=== PATIENT | male | born 1960 | race Caucasian/White ===

== ENCOUNTER 2020-03-16 09:00 | Inpatient (IN) ==
[2020-03-16] MEDS ORDERED: LACTULOSE 20 GM/30 ML ORAL.SOL PO PRN ×3 (12:53→14:56)
[2020-03-16] MEDS ORDERED: SENNOSIDES 1 TABLET PO PRN ×3 (12:53→14:56)
[2020-03-16] MEDS ORDERED: ONDANSETRON 4 MG/2 ML VIAL IV PRN ×4 (12:53→14:56)
[2020-03-16] MEDS ORDERED: THIAMINE 100 MG in 0.9 % SODIUM CHLORIDE 50 ML IV SCH (13:30)
[2020-03-16] MEDS ORDERED: 0.9 % SODIUM CHLORIDE 10 ML SYRINGE IV SCH ×4 (14:00→22:00)
[2020-03-16] MEDS ORDERED: DIAZEPAM 10 MG TABLET PO PRN (14:15)
--- NOTE | 2020-03-16 14:28 | Internal Med History&Physical ---
HPI History of Present Illness Patient information: Note initiated : 03/16/20 at 2:24 pm Service Date, if different from initiated Date: [] Patient: Niharika Domingo a 59 y/o M admitted on 03/16/20 for detox. Chief Complaint: [alcohol withdrawal] History of present illness: Mr. Domingo is a 59 year old M with a history of alcohol use disorder admitted for alcohol withdrawal. Constitutional Constitutional: Present as per HPI Cardiovascular Cardiovascular: Absent chest pain Respiratory Respiratory: Absent dyspnea Gastrointestinal Gastrointestinal: Absent abdominal pain Integumentary Integumentary: Absent skin ulcer Psychiatric Psychiatric: Present depression; Absent suicidal ideation PFSH PFSH All Active Problems (Updated 03/16/20 @ 12:32 by Andriy Brownlee DO) Chest pain, non-cardiac (Acute) Alcoholism, chronic (Acute) Alcohol withdrawal seizure (Acute) Cannabis use disorder, moderate, dependence (Acute) Generalized anxiety disorder (Acute) Alcohol related seizure (Acute) Alcohol use disorder, severe, dependence (Acute) Pain in right knee (Chronic) Left ventricular diastolic dysfunction (Chronic) Essential hypertension (Chronic) Hearing loss (Chronic) Cataract (Chronic) Mixed anxiety and depressive disorder (Chronic) Bipolar disorder (Chronic) Overweight (Chronic) Hyperlipidemia (Chronic) Alcohol abuse (Chronic) CVA (cerebral vascular accident) (Acute) Medical History (Updated 03/16/20 @ 12:32 by Andriy Brownlee DO) Alcohol abuse (Chronic) Alcoholic intoxication (Resolved) Bipolar disorder (Chronic) Cataract (Chronic) Contusion of knee (Resolved) CVA (cerebral vascular accident) (Acute) Diverticular disease (Inactive) Essential hypertension (Chronic) Hearing loss (Chronic) Hyperlipidemia (Chronic) Left ventricular diastolic dysfunction (Chronic) Lipoma (Inactive) Malaise (Inactive) Mixed anxiety and depressive disorder (Chronic) Numbness (Inactive) Overweight (Chronic) Pain in right knee (Chronic) Surgical History (Updated 03/16/20 @ 12:28 by Andriy Brownlee DO) History of right knee surgery (Inactive) History of surgery on wrist (Inactive) ORIF, due to fracture Family History (Updated 03/16/20 @ 12:26 by Andriy Brownlee DO) Other No pertinent family history Social History lives independently: Yes sexually active: Yes smoking status: Never smoker alcohol intake frequency: 2+ drinks per day substance use type: marijuana working smoke detector in home: Yes firearms in home: No MEDS/ALLERGIES Home Medications and Allergies Home Medications Medication Instructions Recorded Confirmed Type No Known Home Meds 03/16/20 03/16/20 History Allergies Allergy/AdvReac Type Severity Reaction Status Date / Time No Known Drug Allergies Allergy Verified 03/16/20 09:32 EXAM Constitutional Vitals: Resp Pulse Ox 19 96 03/16/20 12:42 03/16/20 12:42 Head Head exam: Present atraumatic and normal inspection Eye Eye exam: Present normal appearance; Absent scleral icterus Neck Neck exam: Present full ROM; Absent lymphadenopathy Respiratory Respiratory exam: Present normal respiratory exam; Absent accessory muscle use Cardiovascular Cardiovascular exam: Present normal rate and rhythm Extremities Exam Extremities exam: Present full ROM and normal inspection Neurological Exam Neurological exam: Present alert, CN II-XII intact and oriented X3 Psychiatric Psychiatric exam: Present anxious; Absent agitated Skin Skin exam: Present normal color and warm DATA Data Completed and Pending Labs: Labs from last 24 hours 03/16/20 13:12 Sodium Pending Potassium Pending Chloride Pending Carbon Dioxide Pending Anion Gap Pending BUN Pending Creatinine Pending GFR Calculation Pending Glucose Pending Uric Acid Pending Calcium Pending Phosphorus Pending Magnesium Pending Total Bilirubin Pending Direct Bilirubin Pending GGT Pending AST Pending ALT Pending Alkaline Phosphatase Pending Lactate Dehydrogenase Pending Total Protein Pending Albumin Pending Globulin Pending Albumin/Globulin Ratio Pending Triglycerides Pending A/P Narrative A/P Narrative: ASSESSMENT: 59 year old male with a history of alcohol use disorder, severe alcohol withdrawal including alcohol withdrawal seizures, admitted for alcohol withdrawal. #Alcohol use disorder #Alcohol withdrawal #Hx of depression PLAN -CIWA protocol w/ benzodiazepine scheduled per specialist. -Vitamin supplementation -Follow and replace electrolytes as needed. -Seizure precautions. -UDS ordered. -Escalate cares if needed. -Follow up with behavioral health after alcohol withdrawal. Time Spent With Patient Time: Total time spent is greater than 50% in coordination of care (as documented) at patient's floor/unit and/or counseling patient: 56 QUALITY Stroke Symptom Onset Unknown: No VTE Deep Vein Thrombosis/Pulmonary Embolism Present on Admission: No
[2020-03-16] MEDS: DIAZEPAM 10 MG TABLET PO PRN ×5 (15:35→22:14)
[2020-03-16 15:41] LABS: ALT/SGPT 29 U/L (<40); AST/SGOT 21 U/L (<40); Albumin/Globulin Ratio 1.3 (1.0-2.3); Alkaline Phosphatase 64 U/L (39-117); Bilirubin,Direct < 0.2 mg/dL (<0.3); Bilirubin,Total 0.2 mg/dL (0.1-1.0); Blood Urea Nitrogen 14 mg/dL (6-20); Calcium 9.1 mg/dL (8.6-10.4); Carbon Dioxide 21 mmol/L (22-30); Chloride 103 mmol/L (96-108); Globulin 3.2 gm/dL (2.2-3.7); Glomerular Filtration Rate 93; Glucose 90 mg/dL (70-105); Lactate Dehydrogenase 189 U/L (135-225); Phosphorous 2.9 mg/dL (2.5-4.5); Triglycerides 184 mg/dL (<150); Uric Acid 8.4 mg/dL (2.5-8.0)
--- NOTE | 2020-03-16 15:54 | Behavioral Health Consult ---
HPI History of Present Illness Patient information: Note initiated : 03/16/20 at 3:42 pm Service Date, if different from initiated Date: [] Patient: Niharika Domingo a 59 y/o M admitted on 03/16/20 for detox. Chief Complaint: alcohol withdrawal History of present illness: Mr. Domingo is a 59 year old M states that he has been drinking alcohol for the past 40 years. Patient is a poor historian and is unable to provide me specific progression of the use of alcohol over the years. He does recall feeling instant euphoria when he first started use of alcohol and states that he was always trying to drink as much as he could afford or what has been available to him. Patient states that in the last year, he has been drinking 24 (16oz) beers a day. Patient states that his last drink was an hour ago. Patient's breathalyzer is 0.9. Urine drug test is positive for Etg, benzodiazepines and cannabis. Patient states that he wakes up at 6 in the morning to drink alcohol in order to avoid withdrawal symptoms. Patient states that he started having several seizures in the last year and states that the last seizure was a few weeks ago. Patient states that he is unable to cut down his use of alcohol even though his primary care provider has prescribed him chlordiazepoxide in the past. Patient states that if he attempts to cut down his drinking, he starts experiencing tremors as well as seizure activity. Patient states that occasionally he exp eriences urinary incontinence when he has a seizure. Patient admits to use of alcohol on top of his use of chlordiazepoxide. Patient states that he has not been taking the medication as prescribed and has been "hoarding it" because he has not been given enough pills in his opinion. Patient states that he has a good relationship with his but she is worried for his health and he is convinced also that his alcoholism is going to kill him unless he stops drinking. Patient states that he has no energy or motivation to do anything. 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 Patient does admit to history of a DUI 13 years ago but denies any recent legal problems. Patient states that his has to drive him everywhere because he is constantly inebriated. Patient admits to prior history of sobriety for 2 years but is unable to give me any specific details as to where he received treatment. He states that he relapsed because he thought that he was able to drink a beer, but once he started drinking he was unable to control himself. Patient feels that 2 years ago, he had surgery on his left hand and was prescribed opioids. He feels that somehow the medication has contributed and increased his cravings for alcohol use but he denies any history of abuse of the opioid medications. He denies any current use of opioids. He has negative Board of pharmacy. Patient denies use of methamphetamines, cocaine. Patient denies any use of benzodiazepines other than what has recently been prescribed to him by his primary care provider. Patient does admit to use of cannabis on a daily basis unspecified amount for the last 40 years. Patient denies any history of medication assisted treatment. Patient denies treatment in [facility] or and does not currently have a sponsor. Patient denies history of hepatitis, pancreatitis or delirium tremens. Patient admits to chipping his teeth as a result of seizures Patient admits to CVA in 2016. Patient is recognizing that his use of alcohol is impacting his overall health and is requesting inpatient treatment to safely discontinue use of alcohol. Patient denies any past history of inpatient mental health treatment. Patient denies any history of outpatient mental health evaluation or treatment. Patient denies any past or present suicidal homicidal ideation. Patient states that he has been for 15 years and does not have any children. Patient denies any family history of alcohol or substance use disorder. Constitutional Constitutional: Present fatigue and weakness; Absent anorexia, chills, daytime sleepiness, excessive sweating, fever(s), frequent falls, headache(s), increased appetite, lethargy, malaise, night sweats, snoring, stops breathing during sleep, weight gain and weight loss EENT Eyes: Absent blind spots, blurry vision, change in vision, decreased night vision, diplopia, discharge, dry eye, exophthalmos, floaters, irritation, itchy eyes, loss of peripheral vision, loss of vision, pain, photophobia, requires corrective lenses, seeing flashes, spots in vision and tunnel vision Ears: Absent decreased hearing, ear discharge, ear pain and tinnitus Nose, mouth and throat: Present dizziness; Absent change in voice, dental pain, dry mouth, dysphagia, epistaxis, headache(s), mouth lesions, mouth pain, nasal discharge, nasal obstruction, nasal trauma, neck mass, neck pain, nose pain, sinus pain, sinus pressure, sore throat, throat swelling and vertigo Cardiovascular Cardiovascular: Present chest pain at rest and lightheadedness; Absent chest pain, diaphoresis, dyspnea, dyspnea on exertion, edema, irregular heart rhythm, radiating jaw, neck or arm pain, leg edema, palpatations, paroxysmal nocturnal dyspnea, pedal edema, radiating pain, rapid heart rate, slow heart rate and sync ope Respiratory Respiratory: Absent cough, dyspnea, hemoptysis, dyspnea on exertion, wheezing, stridor, pain on inspirtation, chest congestion, excessive phlegm production and pain with cough Gastrointestinal Gastrointestinal: Present abdominal pain (epigastric); Absent bloating, coffee ground emesis, constipation, diarrhea, dyspepsia, early satiety, excessive flatus and odynophagia Musculoskeletal Musculoskeletal: Absent abnormal gait, back pain, joint swelling, limited range of motion, muscle cramps, muscle weakness, myalgias, neck pain, numbness, r adiating pain into limb, stiffness and tingling Integumentary Integumentary: Absent bleeding lesions, change in hair, change in pigmentation, dry skin, hirsutism, lesions, new lesions, photosensitivity, pruritus, rash, skin pain, skin ulcer, swelling and unusual bruising Neurological Neurological: Present tremor(s); Absent abnormal gait, abnormal hearing, abnormal movements, abnormal speech, burning sensations, confusion, convulsions, dizziness, frequent falls, headache(s), lack of coordination, loss of vision, memory loss, numbness, paresthesias, restless legs, sensory deficit, syncope, tingling and vertigo Psychiatric Psychiatric: Present anxiety, cravings, depression, hopelessness, irritability, mood swings and panic attacks; Absent auditory hallucinations, confusion, hallucinations, memory loss, paranoia, suicidal ideation and visual hallucinations Endocrine Endocrine: Present fatigue; Absent excessive sweating, flushing, heat intolerance, palpitations, polydipsia and polyuria Hematologic/Lymphatic Hematologic/Lymphatic: Absent easy bleeding, easy bruising and lymphadenopathy Allergic/Immunologic Allergic/Immunologic: Absent tongue swelling, throat swelling, itchy eyes, uticaria, wheezing and lip swelling PFSH PFSH All Active Problems (Updated 03/16/20 @ 15:49 by Abi Trejo DO) Alcohol use disorder, severe, dependence (Acute) Chest pain, non-cardiac (Acute) Alcoholism, chronic (Acute) Alcohol withdrawal seizure (Acute) Cannabis use disorder, moderate, dependence (Acute) Generalized anxiety disorder (Acute) Alcohol related seizure (Acute) Alcohol use disorder, severe, dependence (Acute) Pain in right knee (Chronic) Left ventricular diastolic dysfunction (Chronic) Essential hypertension (Chronic) Hearing loss (Chronic) Cataract (Chronic) Mixed anxiety and depressive disorder (Chronic) Bipolar disorder (Chronic) Overweight (Chronic) Hyperlipidemia (Chronic) Alcohol abuse (Chronic) CVA (cerebral vascular accident) (Acute) Medical History (Updated 03/16/20 @ 15:49 by Abi Trejo DO) Alcohol abuse (Chronic) Alcoholic intoxication (Resolved) Bipolar disorder (Chronic) Cataract (Chronic) Contusion of knee (Resolved) CVA (cerebral vascular accident) (Acute) Diverticular disease (Inactive) Essential hypertension (Chronic) Hearing loss (Chronic) Hyperlipidemia (Chronic) Left ventricular diastolic dysfunction (Chronic) Lipoma (Inactive) Malaise (Inactive) Mixed anxiety and depressive disorder (Chronic) Numbness (Inactive) Overweight (Chronic) Pain in right knee (Chronic) Surgical History (Updated 03/16/20 @ 12:28 by Andriy Brownlee DO) History of right knee surgery (Inactive) History of surgery on wrist (Inactive) ORIF, due to fracture Family History (Updated 03/16/20 @ 12:26 by Andriy Brownlee DO) Other No pertinent family history Social History lives independently: Yes sexually active: Yes smoking status: Never smoker alcohol intake frequency: 2+ drinks per day substance use type: marijuana working smoke detector in home: Yes firearms in home: No MEDS/ALLERGIES Home Medications and Allergies Home Medications Medication Instructions Recorded Confirmed Type No Known Home Meds 03/16/20 03/16/20 History Allergies Allergy/AdvReac Type Severity Reaction Status Date / Time No Known Drug Allergies Allergy Verified 03/16/20 09:32 Physical Examination Vital Signs Vital signs: Temp Pulse Resp BP Pulse Ox 98.0 F 87 18 157/109 97 03/16/20 12:53 03/16/20 12:53 03/16/20 12:53 03/16/20 12:53 03/16/20 12:53 Constitutional General appearance: no acute distress and alert EENT Eyes pulmonary: nonicteric ENT: oropharynx moist Neck: supple, no lymphadenopathy and no JVD Respiratory Effort: normal Auscultation: bilateral: clear Percussion: bilateral: not dull Cardiovascular Cardiovascular: regular rate and rhythm Gastrointestinal Gastrointestinal: normoactive bowel sounds Integumentary Integumentary: normal Extremities Extremities: no cyanosis, no edema, pulses normal and no ischemia or petechiae Musculoskeletal Musculoskeletal: no deformities and ROM normal Gait: normal gait Neurologic Neurological: normal mental status, non-focal exam, pupils equal and round, CN II-XII normal and motor strength normal and symmetric Psychiatric Psychiatric: anxious Results Laboratory Findings CBC and BMP: 03/16/20 13:12 Abnormal lab findings: Abnormal Labs 03/16/20 13:12 Carbon Dioxide 21 L Uric Acid 8.4 H GGT 63 H Triglycerides 184 H A/P Assessment and plan (1) Chest pain, non-cardiac: Status: Acute (2) Alcohol withdrawal seizure: Status: Acute Qualifiers: Complication of substance-induced condition: uncomplicated Qualified Code(s): F10.230 - Alcohol dependence with withdrawal, uncomplicated; R56.9 - Unspecified convulsions (3) Alcohol use disorder, severe, dependence: Status: Acute (4) Cannabis use disorder, moderate, dependence: Status: Acute (5) Generalized anxiety disorder: Status: Acute Narrative A/P Narrative: Patient states that he consumed 4 (16oz) beers today prior to coming to the appointment. He reports that he is not able to stop use of alcohol on his own without starting to experience alcohol withdrawal symptoms. He continues to utilize cannabis on a daily basis. He states that since last ni ght around 12 PM he has been having intermittent chest pains not provoked through activity and describes symptoms as sharp without radiation. Patient admits to dizziness but denies syncope. He denies shortness of breath but admits to abdominal pain mostly epigastric. Patient denies suicidal homicidal ideation. I discussed with patient the importance of evaluating chest pain in the emergency room and coordinated transition for patient to emergency room right away where he was evaluated and was cleared for inpatient detox. We discussed the disease of addiction and in particular the disease of alcohol use disorder as well as management of inpatient detox in great detail. I answered all of patient's questions and I have coordinated care with admitting physician, who agreed to admit patient. Patient is being admitted to ICU with seizure precautions. He will be administered thiamine and his CIWA scores will be monitored hourly with as needed Valium for CIWA greater than 6. Care has been coordinated with the nursing staff. Discussed close monitoring and daily follow-up. Time Spent With Patient Time: Total time spent is greater than 50% in coordination of care (as documented) at patient's floor/unit and/or counseling patient: [id number] time with patient has been spent 40 minutes. Additional 30 minutes has been spent in [id number] time, working with emergency room physician as well as inpatient staff, nursing as well as hospitalist, . I have reviewed records from emergency room today.
[2020-03-16 19:19] LABS: Amphetamine Screen,Urine None detected; Barbiturate Screen,Urine None detected; Benzodiazepines Screen,Urine Suspect positive; Cannabinoid Screen,Urine Suspect Positive; Cocaine Screen,Urine None detected; Opiate Screen,Urine None detected; Oxycodone, Urine Screen None detected; Phencyclidine Screen,Urine None detected
[2020-03-16] MEDS: VITAMIN B COMPLEX 1 CAPSULE PO SCH (20:15)
[2020-03-16] MEDS: MULTIVIT,THER IRON,CA,FA & MIN 1 TABLET PO SCH (20:15)
[2020-03-16] MEDS: THIAMINE 100 MG TABLET PO SCH (20:15)
[2020-03-16] MEDS: 0.9 % SODIUM CHLORIDE 10 ML SYRINGE IV SCH (20:16)
[2020-03-16] MEDS: DOCUSATE SODIUM 100 MG CAPSULE PO SCH (20:51)
[2020-03-16] MEDS ORDERED: DOCUSATE SODIUM 100 MG CAPSULE PO SCH ×3 (21:00)
[2020-03-16] MEDS ORDERED: THIAMINE 100 MG TABLET PO SCH (21:00)
[2020-03-16] MEDS ORDERED: MULTIVIT,THER IRON,CA,FA & MIN 1 TABLET PO SCH (21:00)
[2020-03-16] MEDS ORDERED: VITAMIN B COMPLEX 1 CAPSULE PO SCH (21:00)
[2020-03-16] MEDS ORDERED: SENNOSIDES 1 TABLET PO SCH (21:00)
[2020-03-16] MEDS ORDERED: MIRTAZAPINE 15 MG TABLET PO PRN (21:32)
[2020-03-16] MEDS ORDERED: PANTOPRAZOLE 40 MG TABLET PO ONE (21:33)
[2020-03-17] MEDS: DIAZEPAM 10 MG TABLET PO PRN ×12 (00:04→23:09)
[2020-03-17] MEDS: 0.9 % SODIUM CHLORIDE 10 ML SYRINGE IV SCH ×3 (05:48→20:25)
[2020-03-17 06:55] LABS: INR 0.9 (0.9-1.1); Prothrombin Time 12.5 sec (11.9-14.5)
[2020-03-17 08:02] LABS: ALT/SGPT 27 U/L (<40); AST/SGOT 20 U/L (<40); Albumin 3.6 gm/dL (3.2-5.2); Albumin/Globulin Ratio 1.2 (1.0-2.3); Alkaline Phosphatase 64 U/L (39-117); Bilirubin,Direct < 0.2 mg/dL (<0.3); Bilirubin,Total 0.5 mg/dL (0.1-1.0); Blood Urea Nitrogen 17 mg/dL (6-20); Calcium 9.1 mg/dL (8.6-10.4); Carbon Dioxide 27 mmol/L (22-30); Chloride 102 mmol/L (96-108); Globulin 3.1 gm/dL (2.2-3.7); Glomerular Filtration Rate 73; Glucose 92 mg/dL (70-105); Lactate Dehydrogenase 153 U/L (135-225); Phosphorous 3.3 mg/dL (2.5-4.5); Triglycerides 215 mg/dL (<150); Uric Acid 7.6 mg/dL (2.5-8.0)
[2020-03-17] MEDS ORDERED: MULTIVIT,THER IRON,CA,FA & MIN 1 TABLET PO SCH (09:00)
[2020-03-17] MEDS ORDERED: FOLIC ACID 1 MG TABLET PO SCH (09:00)
[2020-03-17] MEDS: THIAMINE 100 MG TABLET PO SCH ×3 (09:05→20:25)
[2020-03-17] MEDS: MULTIVIT,THER IRON,CA,FA & MIN 1 TABLET PO SCH ×2 (09:06→20:24)
[2020-03-17] MEDS: VITAMIN B COMPLEX 1 CAPSULE PO SCH ×2 (09:06→20:24)
[2020-03-17] MEDS: DOCUSATE SODIUM 100 MG CAPSULE PO SCH ×2 (09:06→20:23)
[2020-03-17] MEDS: FOLIC ACID 1 MG TABLET PO SCH (09:06)
--- NOTE | 2020-03-17 09:24 | Behavioral Health Consult ---
HPI History of Present Illness Patient information: Note initiated : 03/17/20 at 9:14 am Service Date, if different from initiated Date: [] Patient: Niharika Domingo a 59 y/o M admitted on 03/16/20 for detox. Chief Complaint: alcohol withdrawal History of present illness: Mr. Domingo is a 59 year old M in acute alcohol withdrawal. Patient reports diaphoresis as well as tremor which he feels is subsiding. He denies auditory, visual or tactile hallucinations. Patient states that his anxiety has decreased. Patient states that chest pain has resolved and he denies abdominal pain or shortness of breath. Patient states that he feels he has been able to sleep throughout the night. Denies suicidal homicidal ideation Constitutional Constitutional: Present night sweats; Absent anorexia, chills, daytime sleepiness, excessive sweating, fatigue, fever(s), frequent falls, headache(s), increased appetite, lethargy, malaise, snoring, stops breathing during sleep, weakness, weight gain and weight loss EENT Eyes: Absent blind spots, blurry vision, change in vision, decreased night vision, diplopia, discharge, dry eye, exophthalmos, floaters, irritation, itchy eyes, loss of peripheral vision, loss of vision, pain, photophobia, requires corrective lenses, seeing flashes, spots in vision and tunnel vision Ears: Absent decreased hearing, ear discharge, ear pain and tinnitus Nose, mouth and throat: Absent change in voice, dental pain, dizziness, dry mouth, dysphagia, epistaxis, headache(s), mouth lesions, mouth pain, nasal discharge, nasal obstruction, nasal trauma, neck mass, neck pain, nose pain, sinus pain, sinus pressure, sore throat, throat swelling and vertigo Cardiovascular Cardiovascular: Present diaphoresis; Absent chest pain, dyspnea, dyspnea on exertion, edema, irregular heart rhythm, radiating jaw, neck or arm pain, leg edema, lightheadedness, palpatations, paroxysmal nocturnal dyspnea, pedal edema, radiating pain, rapid heart rate, slow heart rate and syncope Respiratory Respiratory: Absent cough, dyspnea, hemoptysis, dyspnea on exertion, wheezing, stridor, pain on inspirtation, chest congestion, excessive phlegm production and pain with cough Gastrointestinal Gastrointestinal: Absent abdominal pain, bloating, coffee ground emesis, constipation, diarrhea, dyspepsia, early satiety, excessive flatus and odynophagia Neurological Neurological: Present tremor(s); Absent abnormal gait, abnormal hearing, abnormal movements, abnormal speech, burning sensations, confusion, convulsions, dizziness, frequent falls, headache(s), lack of coordination, loss of vision, memory loss, numbness, paresthesias, restless legs, sensory deficit, syncope, tingling and vertigo Psychiatric Psychiatric: Present anxiety, depression and mood swings; Absent auditory hallucinations, confusion, cravings, hallucinations, hopelessness, irritability, memory loss, panic attacks, paranoia, suicidal ideation and visual hallucina tions PFSH PFSH All Active Problems (Updated 03/17/20 @ 09:21 by Abi Trejo DO) Alcohol withdrawal (Acute) Alcohol use disorder, severe, dependence (Acute) Chest pain, non-cardiac (Acute) Alcoholism, chronic (Acute) Alcohol withdrawal seizure (Acute) Cannabis use disorder, moderate, dependence (Acute) Generalized anxiety disorder (Acute) Alcohol related seizure (Acute) Alcohol use disorder, severe, dependence (Acute) Pain in right knee (Chronic) Left ventricular diastolic dysfunction (Chronic) Essential hypertension (Chronic) Hearing loss (Chronic) Cataract (Chronic) Mixed anxiety and depressive disorder (Chronic) Bipolar disorder (Chronic) Overweight (Chronic) Hyperlipidemia (Chronic) Alcohol abuse (Chronic) CVA (cerebral vascular accident) (Acute) Medical History (Updated 03/17/20 @ 09:21 by Abi Trejo DO) Alcohol abuse (Chronic) Alcoholic intoxication (Resolved) Bipolar disorder (Chronic) Cataract (Chronic) Contusion of knee (Resolved) CVA (cerebral vascular accident) (Acute) Diverticular disease (Inactive) Essential hypertension (Chronic) Hearing loss (Chronic) Hyperlipidemia (Chronic) Left ventricular diastolic dysfunction (Chronic) Lipoma (Inactive) Malaise (Inactive) Mixed anxiety and depressive disorder (Chronic) Numbness (Inactive) Overweight (Chronic) Pain in right knee (Chronic) Surgical History (Updated 03/16/20 @ 12:28 by Andriy Brownlee DO) History of right knee surgery (Inactive) History of surgery on wrist (Inactive) ORIF, due to fracture Family History (Updated 03/16/20 @ 12:26 by Andriy Brownlee DO) Other No pertinent family history Social History lives independently: Yes sexually active: Yes smoking status: Never smoker alcohol intake frequency: 2+ drinks per day substance use type: marijuana working smoke detector in home: Yes firearms in home: No MEDS/ALLERGIES Home Medications and Allergies Home Medications Medication Instructions Recorded Confirmed Type No Known Home Meds 03/16/20 03/16/20 History Allergies Allergy/AdvReac Type Severity Reaction Status Date / Time No Known Drug Allergies Allergy Verified 03/16/20 09:32 Physical Examination Vital Signs Vital signs: Temp Pulse Resp BP Pulse Ox 98.1 F 79 18 139/89 94 03/17/20 07:53 03/17/20 07:53 03/17/20 07:53 03/17/20 07:53 03/17/20 07:53 Constitutional General appearance: no acute distress, alert and other (no auditory, visual, tactile hallucinations) EENT Eyes pulmonary: nonicteric ENT: oropharynx moist and other (no lingual tremor present) Neck: no lymphadenopathy and no JVD Respiratory Effort: normal Auscultation: bilateral: clear Percussion: bilateral: not dull Cardiovascular Cardiovascular: regular rate and rhythm Gastrointestinal Gastrointestinal: normoactive bowel sounds Extremities Extremities: no cyanosis, no edema, pulses normal and no ischemia or petechiae Neurologic Neurological: normal mental status, non-focal exam, pupils equal and round, CN II-XII normal and motor strength normal and symmetric Psychiatric Psychiatric: anxious and tearful Results Laboratory Findings CBC and BMP: 03/17/20 05:11 ABG, PT/INR, D-dimer: PT/INR, D-dimer PT 12.5 sec (11.9-14.5) 03/17/20 05:11 INR 0.9 (0.9-1.1) 03/17/20 05:11 Abnormal lab findings: Abnormal Labs 03/16/20 03/16/20 03/17/20 13:12 18:04 05:11 Carbon Dioxide 21 L Uric Acid 8.4 H GGT 63 H 62 H Triglycerides 184 H 215 H U Benzodiazepines Scrn Suspect positive A U Marijuana (THC) Screen Suspect positive A Alcohol Toxicology: PT/INR, D-dimer PT 12.5 sec (11.9-14.5) 03/17/20 05:11 INR 0.9 (0.9-1.1) 03/17/20 05:11 A/P Assessment and plan (1) Alcohol use disorder, severe, dependence: Status: Acute (2) Alcohol withdrawal: Status: Acute Qualifiers: Complication of substance-induced condition: uncomplicated Qualified Code(s): F10.230 - Alcohol dependence with withdrawal, uncomplicated (3) Generalized anxiety disorder: Status: Acute (4) Chest pain, non-cardiac: Status: Acute Narrative A/P Narrative: Patient is an active alcohol withdrawal. His CIWA at bedside today is 2. CIWAs throughout the night ranged from 7-12 and patient has received 10 mg of Valium on an hourly basis. Anticipate continual CIWA scores and close monitoring. Patient had complete resolution of chest pain. Continue close monitoring with seizure precautions. Care has been coordinated with Time Spent With Patient Time: Total time spent is greater than 50% in coordination of care (as documented) at patient's floor/unit and/or counseling patient: I have spent 25 minutes with patient at bedside. I have spent additional 25 minutes of [id number] time coordinating care with hospitalist, and nursing staff.
--- NOTE | 2020-03-17 13:44 | Internal Med Progress Note ---
SUBJECTIVE Subjective Patient information: Note initiated : 03/17/20 at 1:38 pm Service Date, if different from initiated Date: [] Patient: Niharika Domingo a 59 y/o M admitted on 03/16/20 for detox. Chief Complaint: [alcohol withdrawal] Interval history: Mr. Domingo is a 59 year old M with a history of alcohol use disorder admitted for alcohol withdrawal. 03/17 In active alcohol withdrawal, no evidence of DT. Monitoring elevated blood pressure for now, likely secondary to withdrawal. Constitutional Vitals: Vital Signs Temp Pulse Resp BP Pulse Ox 99.8 F H 92 H 18 130/101 94 03/17/20 11:49 03/17/20 11:49 03/17/20 11:49 03/17/20 11:49 03/17/20 11:49 Period Temp Pulse Resp BP Sys/Garrison Pulse Ox Last 24 Hr 97.6 F-99.8 F 76-92 16-18 122-165/75-106 93-97 Intake and Output 03/16/20 03/17/20 03/17/20 21:59 05:59 13:59 Intake Total 291 425 420 Output Total 400 500 450 Balance -109 -75 -30 Weight 103.555 kg Intake & Output: Intake & Output 03/16/20 03/17/20 03/17/20 21:59 05:59 13:59 Intake Total 291 425 420 Output Total 400 500 450 Balance -109 -75 -30 Weight 103.555 kg Intake: IV 51 Vitamin B1 100 mg In Sodium 51 Chloride 0.9% 50 ml @ 50 mls/hr IV DAILY [facility] Rx#:[id number] Oral 240 425 420 Output: Void Amount 400 500 450 Other: Meal Dinner Lunch Percent of Meal Consumed 75% 100% Urine Appearance Clear Urine Color Dark Yellow Bright Yellow # Bowel Movements 1 0 Head Head exam: Present atraumatic and normal inspection Eye Eye exam: Present normal appearance Neck Neck exam: Present full ROM Respiratory Respiratory exam: Present normal respiratory exam Cardiovascular Cardiovascular exam: Present normal rate and rhythm GI/Abdominal GI/Abdominal exam: Present soft; Absent tenderness Extremities Exam Extremities exam: Present full ROM Neurological Exam Neurological exam: Present CN II-XII intact Psychiatric Psychiatric exam: Present anxious Skin Skin exam: Present normal color OBJ DATA Labs CBC & Chem 7: 03/17/20 05:11 Labs: Abnormal Lab Results 03/17/20 03/16/20 03/16/20 05:11 18:04 13:12 Carbon Dioxide 21 L Uric Acid 8.4 H GGT 62 H 63 H Triglycerides 215 H 184 H U Benzodiazepines Scrn Suspect positive A U Marijuana (THC) Screen Suspect positive A Meds: Medications Diazepam (Valium) 10 mg PO Q1HP PRN PRN Reason: Anxiety/Agitation Docusate Sodium (Colace) 100 mg PO BID [facility] Last Admin: 03/17/20 09:06 Dose: 100 mg Documented by: Folic Acid (Folic Acid) 1 mg PO DAILY [facility] Last Admin: 03/17/20 09:06 Dose: 1 mg Documented by: Iron Carb/Multivit/Dickenson/Folic Acid (Multivitamin W/Minerals) 1 tab PO BID [facility] Stop: 03/21/20 09:01 Last Admin: 03/17/20 09:06 Dose: 1 tab Documented by: Lactulose (Cephulac) 10 gm PO DAILYP PRN PRN Reason: Constipation Mirtazapine (Remeron) 15 mg PO HSP PRN PRN Reason: Insomnia Ondansetron HCl (Zofran) 4 mg IV Q4HP PRN; Protocol PRN Reason: Nausea And Vomiting Senna (Senokot) 2 tab PO HSP PRN PRN Reason: Constipation Sodium Chloride (Saline Flush) 10 ml IV Q8 [facility] Last Admin: 03/17/20 05:48 Dose: 10 ml Documented by: Thiamine HCl (Vitamin B1) 100 mg PO TID [facility] Stop: 03/19/20 09:01 Last Admin: 03/17/20 09:05 Dose: 100 mg Documented by: Vitamin B Complex (Vitamin B Complex) 1 cap PO BID [facility] Stop: 03/21/20 09:01 Last Admin: 03/17/20 09:06 Dose: 1 cap Documented by: A/P Narrative A/P Narrative: ASSESSMENT: 59 year old male with a history of alcohol use di sorder, severe alcohol withdrawal including alcohol withdrawal seizures, admitted for alcohol withdrawal. #Alcohol use disorder #Alcohol withdrawal #Hx of depression PLAN -CIWA protocol w/ benzodiazepine prn per specialist. -Vitamin supplementation -Follow and replace electrolytes as needed. -Seizure precautions. -Escalate cares if needed. -Follow up with behavioral health after alcohol withdrawal. Time Spent With Patient Time: Total time spent is greater than 50% in coordination of care (as documented) at patient's floor/unit and/or counseling patient: QUALITY Stroke Symptom Onset Unknown: No VTE Deep Vein Thrombosis/Pulmonary Embolism Present on Admission: No
[2020-03-17] MEDS: GABAPENTIN 300 MG CAPSULE PO SCH ×2 (16:00→20:24)
[2020-03-17] MEDS: BACLOFEN 10 MG TABLET PO SCH (20:24)
[2020-03-18] MEDS: DIAZEPAM 10 MG TABLET PO PRN (04:37)
[2020-03-18] MEDS: 0.9 % SODIUM CHLORIDE 10 ML SYRINGE IV SCH ×3 (05:05→20:33)
[2020-03-18 07:06] LABS: ALT/SGPT 26 U/L (<40); AST/SGOT 17 U/L (<40); Albumin 3.7 gm/dL (3.2-5.2); Albumin/Globulin Ratio 1.1 (1.0-2.3); Alkaline Phosphatase 72 U/L (39-117); Bilirubin,Direct < 0.2 mg/dL (<0.3); Bilirubin,Total 0.5 mg/dL (0.1-1.0); Blood Urea Nitrogen 18 mg/dL (6-20); Calcium 9.2 mg/dL (8.6-10.4); Carbon Dioxide 24 mmol/L (22-30); Chloride 106 mmol/L (96-108); Globulin 3.5 gm/dL (2.2-3.7); Glomerular Filtration Rate 73; Glucose 103 mg/dL (70-105); Lactate Dehydrogenase 144 U/L (135-225); Phosphorous 3.2 mg/dL (2.5-4.5); Triglycerides 193 mg/dL (<150); Uric Acid 7.9 mg/dL (2.5-8.0)
[2020-03-18] MEDS: GABAPENTIN 300 MG CAPSULE PO SCH ×4 (08:03→20:33)
[2020-03-18] MEDS: DOCUSATE SODIUM 100 MG CAPSULE PO SCH ×2 (08:03→20:33)
[2020-03-18] MEDS: MULTIVIT,THER IRON,CA,FA & MIN 1 TABLET PO SCH ×2 (08:03→20:33)
[2020-03-18] MEDS: BACLOFEN 10 MG TABLET PO SCH ×2 (08:03→20:33)
[2020-03-18] MEDS: THIAMINE 100 MG TABLET PO SCH ×3 (08:03→20:32)
[2020-03-18] MEDS: VITAMIN B COMPLEX 1 CAPSULE PO SCH ×2 (08:03→20:33)
[2020-03-18] MEDS: FOLIC ACID 1 MG TABLET PO SCH (08:03)
[2020-03-18] MEDS ORDERED: chlordiazePOXIDE 25 MG CAPSULE PO SCH (09:00)
--- NOTE | 2020-03-18 10:40 | Behavioral Health Consult ---
HPI History of Present Illness Patient information: Note initiated : 03/18/20 at 10:30 am Service Date, if different from initiated Date: [] Patient: Niharika Domingo a 59 y/o M admitted on 03/16/20 for detox. Chief Complaint: alcohol withdrawal History of present illness: Mr. Domingo is a 59 year old M who is continuing to receive treatment for alcohol withdrawal. Patient has been struggling with tremors, anxiety and diaphoresis which is starting to improve. He denies auditory, visual or tactile hallucination. Denies chest pain, shortness of john ath, abdominal pain or calf pain. Patient reports that he is feeling ashamed and admits to struggling with depression but denies suicidal homicidal ideation. Denies cravings. Constitutional Constitutional: Present fatigue, headache(s) and night sweats; Absent anorexia, chills, daytime sleepiness, excessive sweating, fever(s), frequent falls, increased appetite, lethargy, malaise, snoring, stops breathing during sleep, weakness, weight gain and weight loss Cardiovascular Cardiovascular: Absent chest pain, diaphoresis, dyspnea, dyspnea on exertion, edema, irregular heart rhythm, radiating jaw, neck or arm pain, leg edema, lightheadedness, palpatations, paroxysmal nocturnal dyspnea, pedal edema, radiating pain, rapid heart rate, slow heart rate and syncope Respiratory Respiratory: Absent cough, dyspnea, hemoptysis, dyspnea on exertion, wheezing, stridor, pain on inspirtation, chest congestion, excessive phlegm production and pain with cough Psychiatric Psychiatric: Present anxiety, depression and mood swings; Absent auditory halluc inations, confusion, cravings, hallucinations, hopelessness, irritability, memory loss, panic attacks, paranoia, suicidal ideation and visual hallucinations PFSH PFSH All Active Problems (Updated 03/18/20 @ 10:39 by Abi Trejo DO) HTN (hypertension) (Acute) Alcohol withdrawal (Acute) Alcohol use disorder, severe, dependence (Acute) Chest pain, non-cardiac (Acute) Alcoholism, chronic (Acute) Alcohol withdrawal seizure (Acute) Cannabis use disorder, moderate, dependence (Acute) Generalized anxiety disorder (Acute) Alcohol related seizure (Acute) Alcohol use disorder, severe, dependence (Acute) Pain in right knee (Chronic) Left ventricular diastolic dysfunction (Chronic) Essential hypertension (Chronic) Hearing loss (Chronic) Cataract (Chronic) Mixed anxiety and depressive disorder (Chronic) Bipolar disorder (Chronic) Overweight (Chronic) Hyperlipidemia (Chronic) Alcohol abuse (Chronic) CVA (cerebral vascular accident) (Acute) Medical History (Updated 03/18/20 @ 10:39 by Abi Trejo DO) Alcohol abuse (Chronic) Alcoholic intoxication (Resolved) Bipolar disorder (Chronic) Cataract (Chronic) Contusion of knee (Resolved) CVA (cerebral vascular accident) (Acute) Diverticular disease (Inactive) Essential hypertension (Chronic) Hearing loss (Chronic) Hyperlipidemia (Chronic) Left ventricular diastolic dysfunction (Chronic) Lipoma (Inactive) Malaise (Inactive) Mixed anxiety and depressive disorder (Chronic) Numbness (Inactive) Overweight (Chronic) Pain in right knee (Chronic) Surgical History (Updated 03/16/20 @ 12:28 by Andriy Brownlee DO) History of right knee surgery (Inactive) History of surgery on wrist (Inactive) ORIF, due to fracture Family History (Updated 03/16/20 @ 12:26 by Andriy Brownlee DO) Other No pertinent family history Social History lives independently: Yes sexually active: Yes smoking status: Never smoker alcohol intake frequency: 2+ drinks per day substance use type: marijuana working smoke detector in home: Yes firearms in home: No MEDS/ALLERGIES Home Medications and Allergies Home Medications Medication Instructions Recorded Confirmed Type No Known Home Meds 03/16/20 03/16/20 History Allergies Allergy/AdvReac Type Severity Reaction Status Date / Time No Known Drug Allergies Allergy Verified 03/16/20 09:32 Physical Examination Vital Signs Vital signs: Temp Pulse Resp BP Pulse Ox 97.8 F 98 H 20 131/100 98 03/18/20 08:00 03/18/20 08:00 03/18/20 08:00 03/18/20 08:00 03/18/20 08:00 Constitutional General appearance: no acute distress and alert (A&O to date place and time) EENT Eyes pulmonary: nonicteric ENT: oropharynx moist Neck: supple, no lymphadenopathy and no JVD Respiratory Effort: normal Auscultation: bilateral: clear Percussion: bilateral: not dull Cardiovascular Cardiovascular: regular rate and rhythm Gastrointestinal Gastrointestinal: normoactive bowel sounds Integumentary Integumentary: normal Extremities Extremities: no cyanosis, no edema, pulses normal and no ischemia or petechiae Neurologic Neurological: normal mental status, non-focal exam, pupils equal and round, CN II-XII normal and motor strength normal and symmetric Psychiatric Psychiatric: anxious and depressed Results Laboratory Findings CBC and BMP: 03/18/20 05:07 ABG, PT/INR, D-dimer: PT/INR, D-dimer PT 12.5 sec (11.9-14.5) 03/17/20 05:11 INR 0.9 (0.9-1.1) 03/17/20 05:11 Abnormal lab findings: Abnormal Labs 03/16/20 03/16/20 03/17/20 13:12 18:04 05:11 Carbon Dioxide 21 L Uric Acid 8.4 H GGT 63 H 62 H Triglycerides 184 H 215 H U Benzodiazepines Scrn Suspect positive A U Marijuana (THC) Screen Suspect positive A 03/18/20 05:07 Carbon Dioxide Uric Acid GGT 67 H Triglycerides 193 H U Benzodiazepines Scrn U Marijuana (THC) Screen Alcohol Toxicology: PT/INR, D-dimer PT 12.5 sec (11.9-14.5) 03/17/20 05:11 INR 0.9 (0.9-1.1) 03/17/20 05:11 A/P Assessment and plan (1) Alcohol withdrawal: Status: Acute Qualifiers: Complication of substance-induced condition: uncomplicated Qualified Code(s): F10.230 - Alcohol dependence with withdrawal, uncomplicated (2) Alcohol use disorder, severe, dependence: Status: Acute (3) Chest pain, non-cardiac: Status: Acute (4) Alcohol withdrawal seizure: Status: Acute Qualifiers: Complication of substance-induced condition: uncomplicated Qualified Code(s): F10.230 - Alcohol dependence with withdrawal, uncomplicated; R56.9 - Unspecified convulsions (5) Cannabis use disorder, moderate, dependence: Status: Acute (6) Generalized anxiety disorder: Status: Acute (7) HTN (hypertension): Status: Acute Qualifiers: Hypertension type: unspecified Qualified Code(s): I10 - Essential (primary) hypertension Narrative A/P Narrative: Patient is an active alcohol withdrawal. CIWA score is 2 at bedtime. CIWA scores ranged from 4-9 throughout the night and patient has received 50 mg of diazepam overnight. Continue monitoring CIWA scores on an hourly basis and will adjust detox protocol by discontinuing diazepam and transitioning patient to chlordiazepoxide 25 mg twice daily while closely monitoring patient. Additionally, started patient on baclofen 10 mg twice daily and his cravings are controlled. He has been having elevated blood pressure and I will start him on clonidine 0.1 mg twice daily. Time Spent With Patient Time: Total time spent is greater than 50% in coordination of care (as documented) at patient's floor/unit and/or counseling patient: [id number] time with patient 25 minutes. Discussed treatment plan and worked on counseled patient on the disease of addiction and the brain disease. Utilized motivational interviewing and exploring reasons for patient to avoid use of alcohol and discussed medication assisted treatment. I spent 16 minutes of counseling patient at bedside. I spent additional 20 minutes coordinating care with hospitalist as well as nursing staff of [id number] time.
[2020-03-18] MEDS ORDERED: LORazepam 2 MG/ML VIAL IV ONE (12:28)
[2020-03-18] MEDS ORDERED: chlordiazePOXIDE 25 MG CAPSULE PO ONE (12:37)
[2020-03-18] MEDS: ENOXAPARIN 40 MG/0.4 ML SYRINGE SQ SCH (13:24)
--- NOTE | 2020-03-18 13:27 | Internal Med Progress Note ---
SUBJECTIVE Subjective Patient information: Note initiated : 03/18/20 at 1:25 pm Service Date, if different from initiated Date: [] Patient: Niharika Domingo a 59 y/o M admitted on 03/16/20 for detox. Chief Complaint: [] Interval history: Mr. Domingo is a 59 year old M with a history of alcohol use disorder admitted for alcohol withdrawal. 03/17 In active alcohol withdrawal, no evidence of DT. Monitoring elevated blood pressure for now, likely secondary to withdrawal. 03/18 Low CIWA scores, unexpected tachycardia given low CIWA scores. EKG shows sinus tachycardia. Ordered d-dimer. Constitutional Vitals: Vital Signs Temp Pulse Resp BP Pulse Ox 97.8 F 126 H 20 141/111 93 03/18/20 12:00 03/18/20 12:00 03/18/20 12:00 03/18/20 12:00 03/18/20 12:00 Period Temp Pulse Resp BP Sys/Garrison Pulse Ox Last 24 Hr 97.5 F-99.5 F 95-126 16-20 122-152/91-111 93-98 Intake and Output 03/17/20 03/18/20 03/18/20 21:59 05:59 13:59 Intake Total 1235 100 360 Output Total 350 500 Balance 885 -400 360 Weight 102.693 kg Intake & Output: Intake & Output 03/17/20 03/18/20 03/18/20 21:59 05:59 13:59 Intake Total 1235 100 360 Output Total 350 500 Balance 885 -400 360 Weight 102.693 kg Intake: Oral 1235 100 360 Output: Void Amount 350 500 Other: Meal Dinner Lunch Percent of Meal Consumed 75% 100% Urine Appearance Clear Urine Color Bright Yellow Dark Yellow Light Anna # Bowel Movements 0 Additional findings Additional findings: Head: Atraumatic, normal inspection. Eyes: normal appearance, no scleral icterus. Neck: full ROM Respiratory: no respiratory distress. Cardiovascular: regular tachycardia, S1, S2. GI/Abdominal: soft, nontender, no guarding. Extremities: full range of motion, nontender. Neurological: CN II-XII intact, intact motor, intact sensation. Psychiatric: normal mood. Skin: warm, normal color OBJ DATA Labs CBC & Chem 7: 03/18/20 05:07 Labs: Abnormal Lab Results 03/18/20 03/17/2003/16/21 05:07 05:11 18:04 Carbon Dioxide Uric Acid GGT 67 H 62 H Triglycerides 193 H 215 H U Benzodiazepines Scrn Suspect positive A U Marijuana (THC) Screen Suspect positive A 03/16/20 13:12 Carbon Dioxide 21 L Uric Acid 8.4 H GGT 63 H Triglycerides 184 H U Benzodiazepines Scrn U Marijuana (THC) Screen Meds: Medications Baclofen (Lioresal) 10 mg PO BID [facility] Last Admin: 03/18/20 08:03 Dose: 10 mg Documented by: Chlordiazepoxide HCl (Librium) 25 mg PO BID [facility] Clonidine HCl (Catapres) 0.1 mg PO BID [facility] Docusate Sodium (Colace) 100 mg PO BID [facility] Last Admin: 03/18/20 08:03 Dose: 100 mg Documented by: Enoxaparin Sodium (Lovenox) 40 mg SQ DAILY [facility] Last Admin: 03/18/20 13:24 Dose: 40 mg Documented by: Folic Acid (Folic Acid) 1 mg PO DAILY [facility] Last Admin: 03/18/20 08:03 Dose: 1 mg Documented by: Gabapentin (Neurontin) 300 mg PO QID [facility] Last Admin: 03/18/20 12:15 Dose: 300 mg Documented by: Iron Carb/Multivit/Charrer/Folic Acid (Multivitamin W/Minerals) 1 tab PO BID [facility] Stop: 03/21/20 09:01 Last Admin: 03/18/20 08:03 Dose: 1 tab Documented by: Lactulose (Cephulac) 10 gm PO DAILYP PRN PRN Reason: Constipation Mirtazapine (Remeron) 15 mg PO HSP PRN PRN Reason: Insomnia Last Admin: 03/17/20 20:24 Dose: 15 mg Documented by: Ondansetron HCl (Zofran) 4 mg IV Q4HP PRN; Protocol PRN Reason: Nausea And Vomiting Senna (Senokot) 2 tab PO HSP PRN PRN Reason: Constipation Sodium Chloride (Saline Flush) 10 ml IV Q8 [facility] Last Admin: 03/18/20 12:51 Dose: 10 ml Documented by: Thiamine HCl (Vitamin B1) 100 mg PO TID [facility] Stop: 03/19/20 09:01 Last Admin: 03/18/20 08:03 Dose: 100 mg Documented by: Vitamin B Complex (Vitamin B Complex) 1 cap PO BID [facility] Stop: 03/21/20 09:01 Last Admin: 03/18/20 08:03 Dose: 1 cap Documented by: A/P Narrative A/P Narrative: ASSESSMENT: 59 year old male with a history of alcohol use disorder, severe alcohol withdrawal including alcohol withdrawal seizures, admitted for alcohol withdrawal. Alcohol withdrawal was unremarkable except sinus tachycadia and elevated blood pressure. #Alcohol use disorder #Alcohol withdrawal #Sinus tachycardia-possibly secondary to alcohol withdrawal. #Elevated blood pressure-suspect secondary to alcohol withdrawal. #Hx of depression PLAN -CIWA protocol w/ benzodiazepine prn per specialist. -Vitamin supplementation -Follow and replace electrolytes as needed. -Check d-dimer, troponin, proBNP. -Start Norvasc daily. -Seizure precautions. -Escalate cares if needed. -DVT prophylaxis: Lovenox SQ. -Dispo: home after withdrawal and medically stable. Follow up with behavioral health services including addiction medicine. Time Spent With Patient Time: Total time spent is greater than 50% in coordination of care (as documented) at patient's floor/unit and/or counseling patient: QUALITY Stroke Symptom Onset Unknown: No VTE Deep Vein Thrombosis/Pulmonary Embolism Present on Admission: No
[2020-03-18] MEDS ORDERED: amLODIPine 5 MG TABLET PO SCH (13:30)
[2020-03-18] MEDS ORDERED: cloNIDine HCL 0.1 MG TABLET PO STA (13:37)
[2020-03-18 14:33] LABS: proBNP 14.1 pg/mL (<125.0)
[2020-03-18 18:16] LABS: Basophils # (Auto) 0.05 K/mcL (0.00-0.20); Basophils % (Auto) 0.5 % (0.0-2.0); Eosinophils # (Auto) 0.06 K/mcL (0.00-0.70); Eosinophils % (Auto) 0.6 % (0.0-7.0); Hematocrit 51.3 % (41.0-55.0); Hemoglobin 17.8 g/dL (13.5-16.5); Lymphocytes # (Auto) 2.34 K/mcL (1.50-4.80); Lymphocytes % (Auto) 24.1 % (15.0-49.0); Mean Cell Volume 91.3 fL (80.0-100.0); Mean Corpuscular HGB Conc 34.7 g/dL (31.0-36.0); Monocytes # (Auto) 0.85 K/mcL (0.10-0.90); Monocytes % (Auto) 8.8 % (1.0-12.0); Platelet Count 427 K/mcL (140-440); RBC 5.62 M/mcL (4.50-5.90); Red Cell Distribution Width 12.2 % (11.5-14.5); WBC 9.7 K/mcL (4.5-11.0)
--- NOTE | 2020-03-18 18:29 | XRay Report ---
CLINICAL INFORMATION: tachycardia, evaluate for cause COMPARISON: 03/16/2020 FINDINGS: Heart size, mediastinum and pulmonary vessels are normal. Mild bibasilar atelectasis appreciated. No infiltrates or effusions. Malunified old left clavicle fracture seen as before IMPRESSION: Minor bibasilar atelectasis Interpreted and Authenticated by: Adi Hairston 03/18/20
[2020-03-18] MEDS: cloNIDine HCL 0.1 MG TABLET PO SCH ×2 (19:17→22:12)
[2020-03-18] MEDS: chlordiazePOXIDE 25 MG CAPSULE PO SCH (20:33)
[2020-03-18] MEDS ORDERED: cloNIDine HCL 0.1 MG TABLET PO SCH ×2 (21:00)
[2020-03-19] MEDS: 0.9 % SODIUM CHLORIDE 10 ML SYRINGE IV SCH ×3 (04:50→21:27)
[2020-03-19 07:12] LABS: ALT/SGPT 22 U/L (<40); AST/SGOT 16 U/L (<40); Albumin 3.4 gm/dL (3.2-5.2); Alkaline Phosphatase 66 U/L (39-117); Bilirubin,Direct < 0.2 mg/dL (<0.3); Bilirubin,Total 0.4 mg/dL (0.1-1.0); Blood Urea Nitrogen 25 mg/dL (6-20); Calcium 8.8 mg/dL (8.6-10.4); Carbon Dioxide 25 mmol/L (22-30); Chloride 102 mmol/L (96-108); Globulin 3.5 gm/dL (2.2-3.7); Glomerular Filtration Rate 73; Glucose 101 mg/dL (70-105); Lactate Dehydrogenase 164 U/L (135-225); Phosphorous 3.3 mg/dL (2.5-4.5); Triglycerides 157 mg/dL (<150); Uric Acid 8.1 mg/dL (2.5-8.0)
[2020-03-19] MEDS: FOLIC ACID 1 MG TABLET PO SCH (08:47)
[2020-03-19] MEDS: ENOXAPARIN 40 MG/0.4 ML SYRINGE SQ SCH (08:47)
[2020-03-19] MEDS: cloNIDine HCL 0.1 MG TABLET PO SCH ×4 (08:47→21:27)
[2020-03-19] MEDS: THIAMINE 100 MG TABLET PO SCH (08:47)
[2020-03-19] MEDS: VITAMIN B COMPLEX 1 CAPSULE PO SCH ×2 (08:48→21:27)
[2020-03-19] MEDS: GABAPENTIN 300 MG CAPSULE PO SCH ×4 (08:48→21:27)
[2020-03-19] MEDS: chlordiazePOXIDE 25 MG CAPSULE PO SCH (08:48)
[2020-03-19] MEDS: MULTIVIT,THER IRON,CA,FA & MIN 1 TABLET PO SCH ×2 (08:48→21:27)
[2020-03-19] MEDS: BACLOFEN 10 MG TABLET PO SCH ×2 (08:48→21:27)
[2020-03-19] MEDS: DOCUSATE SODIUM 100 MG CAPSULE PO SCH ×2 (08:49→21:27)
--- NOTE | 2020-03-19 11:05 | Internal Med Progress Note ---
SUBJECTIVE Subjective Patient information: Note initiated : 03/19/20 at 11:00 am Service Date, if different from initiated Date: [] Patient: Niharika Domingo a 59 y/o M admitted on 03/16/20 for detox. Chief Complaint: [] Interval history: Mr. Domingo is a 59 year old M with a history of alcohol use disorder admitted for alcohol withdrawal. 03/17 In active alcohol withdrawal, no evidence of DT. Monitoring elevated blood pressure for now, likely secondary to withdrawal. 03/18 Low CIWA scores, unexpected tachycardia given low CIWA scores. EKG shows sinus tachycardia. Ordered d-dimer, trop, BNP, chest xray-all neg. 03/19 Alcohol withdrawal likely resolved. Constitutional Vitals: Vital Signs Temp Pulse Resp BP Pulse Ox 98.7 F 117 H 17 137/97 96 03/19/20 08:00 03/18/20 16:28 03/19/20 08:06 03/19/20 08:00 03/19/20 08:06 Period Temp Pulse Resp BP Sys/Garrison Pulse Ox Last 24 Hr 97.5 F-98.7 F 115-126 14-20 101-141/68-111 91-96 Intake and Output 03/18/20 03/19/20 03/19/20 21:59 05:59 13:59 Intake Total 350 480 200 Output Total 275 550 Balance 75 -70 200 Weight 101.06 kg Intake & Output: Intake & Output 03/18/20 03/19/20 03/19/20 21:59 05:59 13:59 Intake Total 350 480 200 Output Total 275 550 Balance 75 -70 200 Weight 101.06 kg Intake: Oral 350 480 200 Output: Void Amount 275 550 Other: Urine Appearance Clear Urine Color Light Anna Light Anna Urine Odor Normal Normal Additional findings Additional findings: Head: Atraumatic, normal inspection. Eyes: normal appearance, no scleral icterus. Neck: full ROM Respiratory: no respiratory distress. Cardiovascular: normal rate and rhythm, S1, S2. GI/Abdominal: soft, nontender, no guarding. Extremities: full range of motion, nontender. Neurological: CN II-XII intact, intact motor, intact sensation. Psychiatric: normal mood. Skin: warm, normal color OBJ DATA Labs CBC & Chem 7: 03/18/20 17:40 03/19/20 04:54 Labs: Abnormal Lab Results 03/19/20 03/18/20 03/18/20 04:54 17:40 05:07 Hgb 17.8 H Carbon Dioxide BUN 25 H Uric Acid 8.1 H GGT 63 H 67 H Triglycerides 157 H 193 H U Benzodiazepines Scrn U Marijuana (THC) Screen 03/17/20 03/16/20 03/16/20 05:11 18:04 13:12 Hgb Carbon Dioxide 21 L BUN Uric Acid 8.4 H GGT 62 H 63 H Triglycerides 215 H 184 H U Benzodiazepines Scrn Suspect positive A U Marijuana (THC) Screen Suspect positive A Meds: Medications Baclofen (Lioresal) 10 mg PO BID [facility] Last Admin: 03/19/20 08:48 Dose: 10 mg Documented by: Clonidine HCl (Catapres) 0.1 mg PO QID [facility] Last Admin: 03/19/20 08:47 Dose: 0.1 mg Documented by: Docusate Sodium (Colace) 100 mg PO BID [facility] Last Admin: 03/19/20 08:49 Dose: Not Given Documented by: Enoxaparin Sodium (Lovenox) 40 mg SQ DAILY [facility] Last Admin: 03/19/20 08:47 Dose: 40 mg Documented by: Folic Acid (Folic Acid) 1 mg PO DAILY [facility] Last Admin: 03/19/20 08:47 Dose: 1 mg Documented by: Gabapentin (Neurontin) 300 mg PO QID [facility] Last Admin: 03/19/20 08:48 Dose: 300 mg Documented by: Iron Carb/Multivit/[place]/Folic Acid (Multivitamin W/Minerals) 1 tab PO BID [facility] Stop: 03/21/20 09:01 Last Admin: 03/19/20 08:48 Dose: 1 tab Documented by: Lactulose (Cephulac) 10 gm PO DAILYP PRN PRN Reason: Constipation Mirtazapine (Remeron) 15 mg PO HSP PRN PRN Reason: Insomnia Last Admin: 03/17/20 20:24 Dose: 15 mg Documented by: Ondansetron HCl (Zofran) 4 mg IV Q4HP PRN; Protocol PRN Reason: Nausea And Vomiting Senna (Senokot) 2 tab PO HSP PRN PRN Reason: Constipation Sertraline HCl (Zoloft) 50 mg PO DAILY [facility] Sodium Chloride (Saline Flush) 10 ml IV Q8 [facility] Last Admin: 03/19/20 04:50 Dose: 10 ml Documented by: Vitamin B Complex (Vitamin B Complex) 1 cap PO BID [facility] Stop: 03/21/20 09:01 Last Admin: 03/19/20 08:48 Dose: 1 cap Documented by: A/P Narrative A/P Narrative: ASSESSMENT: 59 year old male with a history of alcohol use disorder, severe alcohol withdrawal including alcohol withdrawal seizures, admitted for alcohol withdrawal. Alcohol withdrawal was unremarkable except sinus tachycardia and elevated blood pressure which resolved with resolution of alcohol withdrawal. #Alcohol use disorder #Alcohol withdrawal-probably resolved #Sinus tachycardia-resolved, secondary to alcohol withdrawal. #Elevated blood pressure-improved, suspect secondary to alcohol withdrawal but may have undiagnosed hypertension #Hx of seizures-likely alcohol withdrawal seizures #Hx of depression PLAN -CIWA protocol w/ benzodiazepine prn per specialist. -Vitamin supplementation -Follow and replace electrolytes as needed. -Seizure precautions. -DVT prophylaxis: Lovenox SQ. -Dispo: home when ok to discharge per addiction medicine specialist. Time Spent With Patient Time: Total time spent is greater than 50% in coordination of care (as documented) at patient's floor/unit and/or counseling patient: QUALITY Stroke Symptom Onset Unknown: No VTE Deep Vein Thrombosis/Pulmonary Embolism Present on Admission: No
--- NOTE | 2020-03-19 12:50 | Behavioral Health Consult ---
HPI History of Present Illness Patient information: Note initiated : 03/19/20 at 12:38 pm Service Date, if different from initiated Date: [] Patient: Niharika Domingo a 59 y/o M admitted on 03/16/20 for detox. Chief Complaint: alcohol withdrawal History of present illness: Mr. Domingo is a 59 year old M who has been treated for alcohol withdrawal. Patient has received 50 mg of Librium last night and received 25 mg of Librium today. Patient CIWA's have ranged from 5-3. CIWA score is 0 at bedside. Patient reports that chest pain has resolved as well as palpitations. Patient was diagnosed with sinus tachycardia but responded to treatment with clonidine. He denies tremors. He does admit to depression that has been chronic and has concerns about being able to maintain sobriety and having enough support system. Patient denies auditory, visual or tactile hallucinations. Denies fever, chills, abdominal pain or shortness of breath. Patient states that his appetite has increased and he no longer has dizziness. Constitutional Constitutional: Absent anorexia, chills, daytime sleepiness, excessive sweating, fatigue, fever(s), frequent falls, headache(s), increased appetite, lethargy, malaise, night sweats, snoring, stops breathing during sleep, weakness, weight gain and weight loss Cardiovascular Cardiovascular: Absent chest pain, diaphoresis, dyspnea, dyspnea on exertion, ed luther, irregular heart rhythm, radiating jaw, neck or arm pain, leg edema, lightheadedness, palpatations, paroxysmal nocturnal dyspnea, pedal edema, radiating pain, rapid heart rate, slow heart rate and syncope Respiratory Respiratory: Absent cough, dyspnea, hemoptysis, dyspnea on exertion, wheezing, stridor, pain on inspirtation, chest congestion, excessive phlegm production and pain with cough Psychiatric Psychiatric: Present depression; Absent anxiety, auditory hallucinations, confusion, cravings, hallucinations, hopelessness, irritability, memory loss, mood swings, panic attacks, paranoia, suicidal ideation and visual wang llucinations PFSH PFSH All Active Problems (Updated 03/19/20 @ 12:51 by Abi Trejo DO) Major depression, recurrent, chronic (Acute) HTN (hypertension) (Acute) Alcohol withdrawal (Acute) Alcohol use disorder, severe, dependence (Acute) Chest pain, non-cardiac (Acute) Alcoholism, chronic (Acute) Alcohol withdrawal seizure (Acute) Cannabis use disorder, moderate, dependence (Acute) Generalized anxiety disorder (Acute) Alcohol related seizure (Acute) Alcohol use disorder, severe, dependence (Acute) Pain in right knee (Chronic) Left ventricular diastolic dysfunction (Chronic) Essential hypertension (Chronic) Hearing loss (Chronic) Cataract (Chronic) Mixed anxiety and depressive disorder (Chronic) Bipolar disorder (Chronic) Overweight (Chronic) Hyperlipidemia (Chronic) Alcohol abuse (Chronic) CVA (cerebral vascular accident) (Acute) Medical History (Updated 03/19/20 @ 12:51 by Abi Trejo DO) Alcohol abuse (Chronic) Alcoholic intoxication (Resolved) Bipolar disorder (Chronic) Cataract (Chronic) Contusion of knee (Resolved) CVA (cerebral vascular accident) (Acute) Diverticular disease (Inactive) Essential hypertension (Chronic) Hearing loss (Chronic) Hyperlipidemia (Chronic) Left ventricular diastolic dysfunction (Chronic) Lipoma (Inactive) Malaise (Inactive) Mixed anxiety and depressive disorder (Chronic) Numbness (Inactive) Overweight (Chronic) Pain in right knee (Chronic) Surgical History (Updated 03/16/20 @ 12:28 by Andriy Brownlee DO) History of right knee surgery (Inactive) History of surgery on wrist (Inactive) ORIF, due to fracture Family History (Updated 03/16/20 @ 12:26 by Andriy Brownlee DO) Other No pertinent family history Social History lives independently: Yes sexually active: Yes smoking status: Never smoker alcohol intake frequency: 2+ drinks per day substance use type: marijuana working smoke detector in home: Yes firearms in home: No MEDS/ALLERGIES Home Medications and Allergies Home Medications Medication Instructions Recorded Confirmed Type No Known Home Meds 03/16/20 03/16/20 History Allergies Allergy/AdvReac Type Severity Reaction Status Date / Time No Known Drug Allergies Allergy Verified 03/16/20 09:32 Physical Examination Vital Signs Vital signs: Temp Pulse Resp BP Pulse Ox 98.7 F 117 H 17 137/97 96 03/19/20 08:00 03/18/20 16:28 03/19/20 08:06 03/19/20 08:00 03/19/20 08:06 Constitutional General appearance: no acute distress and alert Respiratory Effort: normal Auscultation: bilateral: clear Percussion: bilateral: not dull Cardiovascular Cardiovascular: regular rate and rhythm Gastrointestinal Gastrointestinal: normoactive bowel sounds Musculoskeletal Musculoskeletal: no deformities and ROM normal Gait: normal gait Neurologic Neurological: normal mental status, non-focal exam, pupils equal and round, CN II-XII normal and motor strength normal and symmetric Psychiatric Psychiatric: mood appropriate and affect normal Results Laboratory Findings CBC and BMP: 03/18/20 17:40 03/19/20 04:54 ABG, PT/INR, D-dimer: PT/INR, D-dimer PT 12.5 sec (11.9-14.5) 03/17/20 05:11 INR 0.9 (0.9-1.1) 03/17/20 05:11 D-Dimer 0.28 ug/mL (0.27-0.50) 03/18/20 13:32 Abnormal lab findings: Abnormal Labs 03/16/20 03/16/20 03/17/20 13:12 18:04 05:11 Hgb Carbon Dioxide 21 L BUN Uric Acid 8.4 H GGT 63 H 62 H Triglycerides 184 H 215 H U Benzodiazepines Scrn Suspect positive A U Marijuana (THC) Screen Suspect positive A 03/18/20 03/18/20 03/19/20 05:07 17:40 04:54 Hgb 17.8 H Carbon Dioxide BUN 25 H Uric Acid 8.1 H GGT 67 H 63 H Triglycerides 193 H 157 H U Benzodiazepines Scrn U Marijuana (THC) Screen Alcohol Toxicology: PT/INR, D-dimer PT 12.5 sec (11.9-14.5) 03/17/20 05:11 INR 0.9 (0.9-1.1) 03/17/20 05:11 D-Dimer 0.28 ug/mL (0.27-0.50) 03/18/20 13:32 A/P Assessment and plan (1) Alcohol withdrawal: Status: Acute Qualifiers: Complication of substance-induced condition: uncomplicated Qualified Code(s): F10.230 - Alcohol dependence with withdrawal, uncomplicated (2) Alcohol use disorder, severe, dependence: Status: Acute (3) Chest pain, non-cardiac: Status: Acute (4) HTN (hypertension): Status: Acute Qualifiers: Hypertension type: unspecified Qualified Code(s): I10 - Essential (primary) hypertension (5) Major depression, recurrent, chronic: Status: Acute Narrative A/P Narrative: Patient has received 25 mg of chlordiazepoxide today. CIWA at bedside is 0. I am discontinuing chlordiazepoxide and do not anticipate any withdrawal symptoms. Patient had complete resolution of palpitations and was diagnosed with sinus tachycardia, PE and DVT have been ruled out. Reviewed lab work results with patient. Patient responded well to clonidine. I have coordinated care with and and am signing off from acute treatment. Patient anticipates to be discharged tomorrow morning. Patient has been started on sertraline for major depressive disorder and I counseled him extensively about the importance of complete abstinence from alcohol as well as medication assisted treatment. Discussed the importance of AA as well as starting treatment at [facility]. Close follow-up 1 week following hospital discharge Time Spent With Patient Time: Total time spent is greater than 50% in coordination of care (as documented) at patient's floor/unit and/or counseling patient: I have spent 35 minutes of [id number] time with patient and spent additional 30 minutes of [id number] time coordinating care with , Dr Richardson and the nursing staff.
[2020-03-19] MEDS: SERTRALINE 50 MG TABLET PO SCH (13:07)
--- NOTE | 2020-03-19 13:54 | Discharge Summary ---
Discharge Provider Provider Patient information: Note initiated : 03/19/20 at 1:53 pm Service Date, if different from initiated Date: [] Patient: Niharika Domingo a 59 y/o M admitted on 03/16/20 for detox. Chief Complaint: [] Date of admission: 03/16/20 12:42 Discharge date: 03/20/20 Primary care physician: Dali Castro PA-C Consults: 03/15/20 08:25 Consult to Physician [CONS] Routine Comment: Consulting Provider: Abi Trejo Reason For Exam: Physician to Consult Discharge Meds Discharge Medications Home Medications aspirin 81 mg PO QDAY #30 tab 03/20/20 [Rx Last Taken Unknown] atorvastatin 40 mg PO QHS #30 tab 03/20/20 [Rx Last Taken Unknown] COURSE Hospital Course Hospital course: Interval history: Mr. Domingo is a 59 year old M with a history of alcohol use disorder admitted for alcohol withdrawal. 03/17 In active alcohol withdrawal, no evidence of DT. Monitoring elevated blood pressure for now, likely secondary to withdrawal. 03/18 Low CIWA scores, unexpected tachycardia given low CIWA scores. EKG shows sinus tachycardia. Ordered d-dimer, trop, BNP, chest xray-all neg. 03/19 Alcohol withdrawal likely resolved. 03/20 Patient had a brief episode last night her nurse reported some weakness in the arm. Patient repeat stat CT which was unremarkable. Follow-up MRI of the brain which was negative. Patient states had mini strokes in the past but is not on aspirin or cholesterol medication. Started aspirin and statin. Lipids are elevated as well. #Alcohol use disorder #Alcohol withdrawal-probably resolved #Sinus tachycardia-resolved, secondary to alcohol withdrawal. #Elevated blood pressure-improved, suspect secondary to alcohol withdrawal but may have undiagnosed hypertension #Hx of seizures-likely alcohol withdrawal seizures #Hx of depression #h/o TIA: start ASA/Statin Discharge diagnosis: Alcohol use disorder and withdrawal, Secondary discharge diagnosis: depression history of TIA. Time Spent with Patient Time attestation: Total time spent providing and/or coordinating discharge services: Time spent: Greater than 30 minutes EXAM Constitutional Vitals: Temp Pulse Resp BP Pulse Ox 98.7 F 117 H 17 137/97 96 03/19/20 08:00 03/18/20 16:28 03/19/20 08:06 03/19/20 08:00 03/19/20 08:06 Discharge Data Data Completed and Pending Labs on day of discharge: Labs from last 24 hours 03/19/20 03/18/20 03/18/20 04:54 17:40 13:32 WBC 9.7 RBC 5.62 Hgb 17.8 H Hct 51.3 MCV 91.3 MCH 31.7 MCHC 34.7 RDW 12.2 Plt Count 427 MPV 9.0 Neut % (Auto) 66.0 Lymph % (Auto) 24.1 [place] % (Auto) 8.8 Eos % (Auto) 0.6 Baso % (Auto) 0.5 Lymph # (Auto) 2.34 [place] # (Auto) 0.85 Eos # (Auto) 0.06 Baso # (Auto) 0.05 Absolute Neutrophils 6.41 D-Dimer Sodium 138 Potassium 3.6 Chloride 102 Carbon Dioxide 25 Anion Gap 11.0 BUN 25 H Creatinine 1.1 GFR Calculation 73 Glucose 101 Uric Acid 8.1 H Calcium 8.8 Phosphorus 3.3 Magnesium 2.5 Total Bilirubin 0.4 Direct Bilirubin < 0.2 GGT 63 H AST 16 ALT 22 Alkaline Phosphatase 66 Lactate Dehydrogenase 164 Troponin T NT-Pro-B Natriuret Pep 14.1 Total Protein 6.9 Albumin 3.4 Globulin 3.5 Albumin/Globulin Ratio 1.0 Triglycerides 157 H 03/18/20 03/18/20 13:32 13:32 WBC RBC Hgb Hct MCV MCH MCHC RDW Plt Count MPV Neut % (Auto) Lymph % (Auto) [place] % (Auto) Eos % (Auto) Baso % (Auto) Lymph # (Auto) [place] # (Auto) Eos # (Auto) Baso # (Auto) Absolute Neutrophils D-Dimer 0.28 Sodium Potassium Chloride Carbon Dioxide Anion Gap BUN Creatinine GFR Calculation Glucose Uric Acid Calcium Phosphorus Magnesium Total Bilirubin Direct Bilirubin GGT AST ALT Alkaline Phosphatase Lactate Dehydrogenase Troponin T < 0.01 NT-Pro-B Natriuret Pep Total Protein Albumin Globulin Albumin/Globulin Ratio Triglycerides Discharge Plan Patient/Caregiver Discharge Instructions Activity: increase activity as tolerated Diet: Regular Diet Instructions: Alcohol Withdrawal (GEN) Prescriptions: New atorvastatin 40 mg tablet 40 mg PO QHS Qty: 30 RF: 0 aspirin 81 mg tablet,delayed release (DR/EC) 81 mg PO QDAY Qty: 30 RF: 0 Follow Up Plan Follow up with: Dali Castro PA-C [Primary Care Provider] - 03/23/20 10:40 am Abi Trejo DO [Physician] - Patient Disposition: Home, Self-Care Prognosis: Fair Overall status at discharge: patient is progressing back to baseline Discharge Orders: Discharge Order (Routine); Ordered 03/20/20 Ordered By: Arnulfo Richardson [facility] VTE Deep Vein Thrombosis/Pulmonary Embolism Present on Admission: No
--- NOTE | 2020-03-20 03:20 | Cat Scan Report ---
CLINICAL INFORMATION: Code stroke COMPARISON: 12/30/2015 TECHNIQUE: 2.5 mm helical slices were obtained in the skull base to vertex. Following reconstruction, axial reformatted images were reviewed at bone and parenchymal windows. The exam was performed using radiation dose optimization techniques including, but not limited to, automated exposure control, adjustment of the mA and/or kV according to patient size and use of iterative reconstruction technique. FINDINGS: The ventricles, sulci, fissures, and cisterns are mildly enlarged compatible with mild age-related atrophy. No extra-axial fluid collections are identified. Mild patchy chronic ischemic changes, in the cerebral white matter, expected for age.. There is no evidence of hemorrhage, mass effect, or edema. Bone windows show no osseous abnormality. IMPRESSION: Mild atrophy and chronic ischemic changes in the cerebral white matter expected for age. No acute findings Fluid in both mastoid air cells compatible with mastoiditis Interpreted and Authenticated by: Adi Hairston 03/20/20
[2020-03-20] MEDS: 0.9 % SODIUM CHLORIDE 10 ML SYRINGE IV SCH ×2 (06:04→12:45)
[2020-03-20 06:26] LABS: Basophils # (Auto) 0.05 K/mcL (0.00-0.20); Basophils % (Auto) 0.7 % (0.0-2.0); Eosinophils # (Auto) 0.11 K/mcL (0.00-0.70); Eosinophils % (Auto) 1.6 % (0.0-7.0); Hematocrit 44.6 % (41.0-55.0); Hemoglobin 15.5 g/dL (13.5-16.5); Lymphocytes # (Auto) 2.19 K/mcL (1.50-4.80); Lymphocytes % (Auto) 32.4 % (15.0-49.0); Mean Cell Volume 92.1 fL (80.0-100.0); Mean Corpuscular HGB Conc 34.8 g/dL (31.0-36.0); Mean Platelet Volume 9.1 fL (7.4-10.4); Monocytes # (Auto) 0.69 K/mcL (0.10-0.90); Monocytes % (Auto) 10.2 % (1.0-12.0); Neutrophils % (Auto) 55.1 % (38.0-78.0); Platelet Count 342 K/mcL (140-440); RBC 4.84 M/mcL (4.50-5.90); Red Cell Distribution Width 11.9 % (11.5-14.5); WBC 6.8 K/mcL (4.5-11.0)
[2020-03-20 06:26] LABS: INR 0.9 (0.9-1.1); Partial Thromboplastin Time 31.4 sec (20.0-37.0); Prothrombin Time 12.7 sec (11.9-14.5)
[2020-03-20 06:46] LABS: ALT/SGPT 20 U/L (<40); AST/SGOT 13 U/L (<40); Albumin 3.4 gm/dL (3.2-5.2); Albumin/Globulin Ratio 1.1 (1.0-2.3); Alkaline Phosphatase 60 U/L (39-117); Bilirubin,Direct < 0.2 mg/dL (<0.3); Bilirubin,Total 0.2 mg/dL (0.1-1.0); Blood Urea Nitrogen 27 mg/dL (6-20); Calcium 8.6 mg/dL (8.6-10.4); Carbon Dioxide 24 mmol/L (22-30); Chloride 107 mmol/L (96-108); Glomerular Filtration Rate 82; Glucose 95 mg/dL (70-105); Lactate Dehydrogenase 121 U/L (135-225); Phosphorous 3.6 mg/dL (2.5-4.5); Triglycerides 143 mg/dL (<150); Uric Acid 7.4 mg/dL (2.5-8.0)
[2020-03-20] MEDS: ENOXAPARIN 40 MG/0.4 ML SYRINGE SQ SCH (08:18)
[2020-03-20] MEDS: FOLIC ACID 1 MG TABLET PO SCH (08:18)
[2020-03-20] MEDS: MULTIVIT,THER IRON,CA,FA & MIN 1 TABLET PO SCH (08:18)
[2020-03-20] MEDS: VITAMIN B COMPLEX 1 CAPSULE PO SCH (08:19)
[2020-03-20] MEDS: cloNIDine HCL 0.1 MG TABLET PO SCH ×2 (08:19→12:45)
[2020-03-20] MEDS: SERTRALINE 50 MG TABLET PO SCH (08:19)
[2020-03-20] MEDS: GABAPENTIN 300 MG CAPSULE PO SCH ×2 (08:19→12:45)
[2020-03-20] MEDS: BACLOFEN 10 MG TABLET PO SCH (08:19)
[2020-03-20] MEDS: DOCUSATE SODIUM 100 MG CAPSULE PO SCH ×2 (08:20→08:27)
[2020-03-20] MEDS ORDERED: ASPIRIN 81 MG TAB.CHEW CHEWED ONE (08:36)
[2020-03-20] MEDS ORDERED: ATORVASTATIN 40 MG TABLET PO ONE (08:37)
--- NOTE | 2020-03-20 08:38 | Event Note ---
Event Note Event Note: Nurse reported last night patient had right hand weakness and feeling off. Patient that she underwent CT of the head was unremarkable for stroke. No focal weakness or facial drooping today. States has had mini strokes in the past. I do not see that he is on aspirin. Patient was started on aspirin. Check lipid panel.
[2020-03-20] MEDS ORDERED: SERTRALINE 50 MG TABLET PO SCH (09:00)
[2020-03-20 09:03] LABS: HDL Cholesterol 44 mg/dL (>40); LDL Cholesterol,Calculated 204 mg/dL (<100); Non-HDL Cholesterol 232 mg/dL (<130); Triglycerides 141 mg/dL (<150)
--- NOTE | 2020-03-20 10:54 | Magnetic Resonance Report ---
CLINICAL INFORMATION: stroke like symptoms, right hand weakness COMPARISON: Head CT 03/20/2020 TECHNIQUE: Sagittal T1 FLAIR, axial T2 FLAIR T2 propeller diffusion images were acquired. FINDINGS: The ventricles, sulci, fissures and cisterns show minimal symmetric enlargement compatible with mild age-related atrophy - no extra-axial fluid collection or mass appreciated. Few scattered chronic ischemic foci seen in the deep cerebral white matter are expected for age. No regions of restricted diffusion to suggest acute infarct. There is no intracerebral hemorrhage, mass effect, edema or other acute finding. Signal void in intracerebral arteries, extra-axial cranial nerves, pituitary orbits and paranasal sinuses are normal. Large amount of fluid is noted in the mastoid air cells bilaterally. IMPRESSION: Mild atrophy and scattered chronic ischemic foci in the cerebral white matter expected for age. No evidence of acute infarct. Severe bilateral mastoiditis Interpreted and Authenticated by: Adi Hairston 03/20/20
== END 2020-03-20 12:33 | disposition home or self-care (01) | DRG 897 ==
LOC: ICU 12:42
PROVIDERS: ADMIT Internal Medicine; ATTEND Internal Medicine